=== PATIENT | female | born 1950 | race Two or more races ===

== ENCOUNTER 2021-05-08 12:15 | Inpatient (IN) | payer OTHER ==
[~2021-05-08] VITALS: Ht 157.5 cm; Wt 79.4 kg
[2021-05-08] MEDS ORDERED: COZAAR50 MG PO (14:18)
[2021-05-10] MEDS ORDERED: FUROSEMIDE40 MG (16:11)
[2021-05-10] MEDS ORDERED: ILEVRO3 ML (16:11)
[2021-05-10] MEDS ORDERED: ALENDRONATE SOD70 MG (16:11)
[2021-05-10] MEDS ORDERED: ALPHAGAN P5 M2 (16:11)
[2021-05-10] MEDS ORDERED: DORZOLAMIDE HCL10 ML (16:11)
[2021-05-10] MEDS ORDERED: DUREZOL5 ML (16:11)
[2021-05-10] MEDS ORDERED: DICLOFENAC SODI75 MG (16:11)
[2021-05-10] MEDS ORDERED: OFLOXACIN5 ML (16:12)
[2021-05-10] MEDS ORDERED: PREDNISOLONE ACE5 ML (16:12)
[2021-06-03] MEDS ORDERED: IMODIUM A-D2 M2 PO (14:37)
[2021-06-03] MEDS ORDERED: PERCOCET 5-3251 EACH PO (14:38)
[2021-06-03] MEDS ORDERED: PEPCID AC20 MG PO (14:38)
[2021-06-03] MEDS ORDERED: METRONIDAZOLE500 MG PO (14:41)
[2021-06-03] MEDS ORDERED: LEVOFLOXACIN500 MG PO (14:42)
== END 2021-06-03 16:59 | disposition home or self-care (01) | DRG 329 ==
LOC: O/R 05-10 10:06 → SURG 05-10 10:06 → SURH 05-10 10:06 → SURG 05-17 19:38 → ICU 05-18 17:01 → MEDJ 05-30 21:30 → SURH 05-31 08:46
PROVIDERS: ADMIT Surgery; ATTEND Surgery
PROC: 0DBP4ZZ Excision of Rectum, Percutaneous Endoscopic Approach (ICD-10-PCS; 2021-05-10)
PROC: 07BB4ZZ Excision of Mesenteric Lymphatic, Percutaneous Endoscopic Approach (ICD-10-PCS; 2021-05-10)
PROC: 0DJD8ZZ Inspection of Lower Intestinal Tract, Via Natural or Artificial Opening Endoscopic (ICD-10-PCS; 2021-05-10)
PROC: 0DTN4ZZ Resection of Sigmoid Colon, Percutaneous Endoscopic Approach (ICD-10-PCS; principal; 2021-05-10 17:45)
PROC: 0D1B4Z4 Bypass Ileum to Cutaneous, Percutaneous Endoscopic Approach (ICD-10-PCS; 2021-05-18)
PROC: 0W9J40Z Drainage of Pelvic Cavity with Drainage Device, Percutaneous Endoscopic Approach (ICD-10-PCS; 2021-05-18)
DX: C20 Malignant neoplasm of rectum (principal); U07.1 COVID-19; K65.1 Peritoneal abscess; K91.89 Other postprocedural complications and disorders of digestive system; K92.2 Gastrointestinal hemorrhage, unspecified; R59.0 Localized enlarged lymph nodes; R73.03 Prediabetes; K63.5 Polyp of colon; B96.29 Other Escherichia coli [E. coli] as the cause of diseases classified elsewhere; B96.1 Klebsiella pneumoniae [K. pneumoniae] as the cause of diseases classified elsewhere; B96.89 Other specified bacterial agents as the cause of diseases classified elsewhere; E78.49 Other hyperlipidemia; I11.0 Hypertensive heart disease with heart failure; I50.9 Heart failure, unspecified; F43.20 Adjustment disorder, unspecified; E66.8 Other obesity; Z68.32 Body mass index [BMI] 32.0-32.9, adult

== ENCOUNTER 2021-06-20 13:15 | Inpatient (IN) | payer OTHER ==
[~2021-06-20] VITALS: Ht 167.6 cm; Wt 74.8 kg
[~2021-06-20 13:15] MED LIST: ALENDRONATE SOD70 MG; ALPHAGAN P5 M2; COZAAR50 MG PO; DICLOFENAC SODI75 MG; DORZOLAMIDE HCL10 ML; DUREZOL5 ML; FUROSEMIDE40 MG; ILEVRO3 ML; IMODIUM A-D2 M2 PO; LEVOFLOXACIN500 MG PO; METRONIDAZOLE500 MG PO; OFLOXACIN5 ML; PEPCID AC20 MG PO; PERCOCET 5-3251 EACH PO; PREDNISOLONE ACE5 ML
[2021-06-21] MEDS ORDERED: TIZANIDINE HCL4 MG (08:22)
[2021-06-21] MEDS ORDERED: DORZOLAMIDE-TI1 EACH (08:23)
[2021-06-29] MEDS ORDERED: AMLODIPINE BESYL5 MG PO (17:27)
[2021-06-29] MEDS ORDERED: ANTI-DIARR1 MG/7.5 M PO (17:29)
[2021-06-29] MEDS ORDERED: QUESTRAN PACKET4 GM PO (17:33)
== END 2021-06-29 20:56 | disposition home or self-care (01) | DRG 682 ==
LOC: ER 13:15 → ICU-2 16:37 → ICU 06-21 20:12 → SURH 06-23 20:35
PROVIDERS: ADMIT Surgery; ATTEND Surgery
PROC: 02HV33Z Insertion of Infusion Device into Superior Vena Cava, Percutaneous Approach (ICD-10-PCS; principal; 2021-06-21)
PROC: 4A12X4Z Monitoring of Cardiac Electrical Activity, External Approach (ICD-10-PCS; 2021-06-23)
PROC: B24BZZZ Ultrasonography of Heart with Aorta (ICD-10-PCS; 2021-06-23)
PROC: BW21ZZZ Computerized Tomography (CT Scan) of Abdomen and Pelvis (ICD-10-PCS; 2021-06-27)
DX: N17.8 Other acute kidney failure (principal); R57.1 Hypovolemic shock; E87.0 Hyperosmolality and hypernatremia; E87.2 Acidosis; C20 Malignant neoplasm of rectum; I10 Essential (primary) hypertension; E86.0 Dehydration; E87.5 Hyperkalemia; I27.20 Pulmonary hypertension, unspecified; Z20.822 Contact with and (suspected) exposure to COVID-19; R73.03 Prediabetes

== ENCOUNTER 2021-09-22 10:00 | Inpatient (IN) | payer OTHER ==
[~2021-09-22] VITALS: Ht 157.5 cm; Wt 61.2 kg
[~2021-09-22 10:00] MED LIST changes: +AMLODIPINE BESYL5 MG PO; +ANTI-DIARR1 MG/7.5 M PO; +DORZOLAMIDE-TI1 EACH; +QUESTRAN PACKET4 GM PO; +TIZANIDINE HCL4 MG
[2021-09-22] MEDS ORDERED: NORVASC5 MG PO (13:34)
[2021-09-27] MEDS ORDERED: DICLOFENAC SODI75 MG (11:03)
[2021-09-27] MEDS ORDERED: OMEPRAZOLE20 MG (11:03)
[2021-09-29] MEDS ORDERED: ULTRAM50 MG PO (07:31)
[2021-09-29] MEDS ORDERED: INTESTINEX680 M1 PO (07:31)
[2021-09-29] MEDS ORDERED: LEVSIN/SL0.125 MG SL (07:31)
== END 2021-09-29 22:48 | disposition home or self-care (01) | DRG 349 ==
LOC: ADM 10:00 → SURH 09-27 07:00 → O/R 09-27 07:09 → SURH 09-27 07:09 → CIR.AMB 09-27 10:00 → EDSTATUS 09-27 10:00 → SURH 09-27 10:00
PROVIDERS: ADMIT Surgery; ATTEND Surgery
PROC: 05H633Z Insertion of Infusion Device into Left Subclavian Vein, Percutaneous Approach (ICD-10-PCS; 2021-09-27)
PROC: 0DBB4ZZ Excision of Ileum, Percutaneous Endoscopic Approach (ICD-10-PCS; principal; 2021-09-27 07:00)
DX: C20 Malignant neoplasm of rectum (principal); R11.2 Nausea with vomiting, unspecified; R59.0 Localized enlarged lymph nodes; Z20.822 Contact with and (suspected) exposure to COVID-19; Z43.2 Encounter for attention to ileostomy

== ENCOUNTER 2022-02-28 01:59 | Inpatient (IN) | payer OTHER ==
[~2022-02-28] VITALS: Ht 157.5 cm; Wt 61.2 kg
[~2022-02-28 01:59] MED LIST changes: +INTESTINEX680 M1 PO; +LEVSIN/SL0.125 MG SL; +NORVASC5 MG PO; +OMEPRAZOLE20 MG; +ULTRAM50 MG PO
[2022-03-03] MEDS ORDERED: LEVSIN/SL0.125 MG SL (13:31)
[2022-03-03] MEDS ORDERED: ursodiol PO (13:35)
[2022-03-03] MEDS ORDERED: PEPCID AC20 MG PO (13:35)
== END 2022-03-03 15:28 | disposition home or self-care (01) | DRG 446 ==
LOC: ER 01:59 → SEC-K 17:47 → MEDJ 17:47
PROVIDERS: Internal Medicine Gastroenterology; ADMIT Specialist; ATTEND Specialist
PROC: 0FC98ZZ Extirpation of Matter from Common Bile Duct, Via Natural or Artificial Opening Endoscopic (ICD-10-PCS; principal; 2022-03-02 07:00)
DX: K80.70 Calculus of gallbladder and bile duct without cholecystitis without obstruction (principal); I10 Essential (primary) hypertension

== ENCOUNTER 2022-03-05 06:38 | Day surgery (SDC) | payer OTHER ==
[~2022-03-05 06:38] MED LIST changes: +ursodiol PO
[2022-03-05] MEDS ORDERED: ULTRACET PO (08:40)
== END 2022-03-05 10:30 | disposition home or self-care (01) ==
LOC: CIR.AMB 06:38
PROVIDERS: ATTEND Surgery
DX: Z85.048 Personal history of other malignant neoplasm of rectum, rectosigmoid junction, and anus (principal); R59.0 Localized enlarged lymph nodes; I10 Essential (primary) hypertension; R73.03 Prediabetes; Z20.822 Contact with and (suspected) exposure to COVID-19; Z91.013 Allergy to seafood; Z86.16 Personal history of COVID-19

== ENCOUNTER 2022-08-02 08:51 | Outpatient (CLI) | payer OTHER ==
[~2022-08-02 08:51] MED LIST changes: +ULTRACET PO
== END 2022-08-02 09:01 | disposition home or self-care (01) ==
LOC: TOM 08:51
PROVIDERS: ATTEND Surgery
DX: C20 Malignant neoplasm of rectum (principal); R59.0 Localized enlarged lymph nodes; R43.2 Parageusia
CPT/HCPCS: 71260; 74177; Q9965

== ENCOUNTER 2022-10-31 05:45 | Day surgery (SDC) | payer OTHER ==
[~2022-10-31 05:45] MED LIST changes: +NORVASC5 MG; +PEPCID PO; +SPIRONOLACTONE25 MG PO; +[UNRECOGNIZED DRUG - OTHER] PO
[2022-10-31] MEDS ORDERED: TRAM1TAB98 PO (10:44)
== END 2022-10-31 14:55 | disposition home or self-care (01) ==
LOC: CIR.AMB 05:45
PROVIDERS: ATTEND Surgery
DX: K43.6 Other and unspecified ventral hernia with obstruction, without gangrene (principal); Z91.013 Allergy to seafood; Z20.822 Contact with and (suspected) exposure to COVID-19
CPT/HCPCS: 49594; C1781

== ENCOUNTER 2022-12-25 17:20 | Emergency (ER) | payer OTHER ==
[~2022-12-25] VITALS: Ht 160 cm; Wt 72.6 kg
[~2022-12-25 17:20] MED LIST changes: +TRAM1TAB98 PO
[2022-12-25 19:36] LABS: HEMATOCRIT 37.2 % (36.0-45.00); HEMOGLOBIN 12.5 g/dL (12.0-15.00); MEAN CELL VOLUME 99.5 fL (80.00-100.00); MEAN CORPUSCULAR HEMOGLOBIN 33.4 pg (27.00-32.0); MEAN CORPUSCULAR HGB CONC 33.6 g/dl (32.0-36.0); PLATELET COUNT 302 K/uL (150-450); RED BLOOD COUNT 3.74 M/uL (4.00-6.00); RED CELL DISTRIBUTION WIDTH 13.9 % (11.5-14.5)
[2022-12-25 19:56] LABS: CALCIUM 8.9 mg/dL (8.5-10.1); CREATININE SERUM 0.75 mg/dL (0.55-1.02); GFR 75.96
== END 2022-12-25 22:16 | disposition home or self-care (01) ==
LOC: ER 17:20
PROVIDERS: General Practice
DX: S39.81XA Other specified injuries of abdomen, initial encounter (principal); W18.39XA Other fall on same level, initial encounter; Y93.89 Activity, other specified; Y92.89 Other specified places as the place of occurrence of the external cause; Z91.013 Allergy to seafood; S29.8XXA Other specified injuries of thorax, initial encounter; Z20.822 Contact with and (suspected) exposure to COVID-19
CPT/HCPCS: 36415; 71250; 74176; 96372; 99284; J1885

== ENCOUNTER 2025-02-06 22:57 | Emergency (ER) | payer OTHER ==
[~2025-02-06] VITALS: Ht 157.5 cm; Wt 77.1 kg
[2025-02-06] MEDS ORDERED: ACID REDUCER20 M1 (23:52)
[2025-02-06] MEDS ORDERED: PEPCID AC20 MG (23:53)
[2025-02-06] MEDS ORDERED: ALDACTONE25 MG (23:53)
[2025-02-07] MEDS ORDERED: SODIUM CL 0.9% 25 ML IV.SOLN. IV STA (02:24)
[2025-02-07] MEDS ORDERED: THIAMINE HCL 100 MG TABLET PO STA (02:25)
[2025-02-07] MEDS ORDERED: CEFTRIAXONE SODIUM 2,000 MG VIAL IV STA (02:25)
[2025-02-07] MEDS ORDERED: DEXAMETHASONE SODIUM PHOSPHATE 4 MG/ML VIAL IV STA (02:26)
[2025-02-07] MEDS ORDERED: FAMOtidine 10 MG/ML (4ML VIAL) IV STA (02:27)
[2025-02-07] MEDS ORDERED: DEXAMETHASONE SODIUM PHOSPHATE 4 MG/ML VIAL ONE (03:17)
[2025-02-07] MEDS ORDERED: FAMOTIDINE/PF 20 MG/2 ML VIAL ONE (03:18)
[2025-02-07] MEDS ORDERED: CEFTRIAXONE SODIUM 2,000 MG VIAL ONE (03:18)
[2025-02-07 04:26] LABS: INR 1.03
[2025-02-07 04:27] LABS: BUN CREA RATIO 20.0 (7.0-25.0); CREATININE SERUM 0.6 mg/dL (0.55-1.02); GFR 97.72; GLUCOSE FASTING 117.0 mg/dL (65-100); OSMOLALITY SERUM 278.0 MOSM/KG (275-295)
[2025-02-07 04:32] LABS: BASO % 0.4 % (0.1-1.2); EOS # 0.03 (0.04-0.54); EOS % 0.4 % (0.7-7.0); LYMPH # 1.83 (1.18-3.74); LYMPH % 22.2 % (19.3-53.1); MEAN PLATELET VOLUME 8.80 fl (9.4-12.4); MONO # 0.69 (0.24-0.82); MONO % 8.4 % (4.7-12.5); NEUT # 5.61 (1.56-6.13); NEUT % 68.1 % (34.0-71.1); RED CELL DISTRIBUTION WIDTH 13.0 % (11.6-14.4)
[2025-02-07] MEDS ORDERED: MORPHINE SULFATE 4 MG/ML CARTRIDGE IV STA (04:47)
== END 2025-02-07 06:03 | disposition home or self-care (01) ==
LOC: ER 22:57
PROVIDERS: General Practice
DX: R55 Syncope and collapse (principal); Z85.038 Personal history of other malignant neoplasm of large intestine; D64.89 Other specified anemias; K21.9 Gastro-esophageal reflux disease without esophagitis; Z91.013 Allergy to seafood; F10.10 Alcohol abuse, uncomplicated; I10 Essential (primary) hypertension; N61.1 Abscess of the breast and nipple
CPT/HCPCS: 36415; 70450; 71250; 93005; 99284; J0696; J1100; J2270; J3490; J7050